=== PATIENT | female | born 1945 | race Hispanic/Latino ===

== ENCOUNTER 2024-06-24 11:21 | Emergency (ER) | payer MEDICARE ==
[~2024-06-24] VITALS: Ht 157.5 cm; Wt 73.0 kg
[~2024-06-24 11:21] MED LIST: ATROVENT HFA12.9 GM NEB; CALCITRIOL0.5 MCG PO; JEVITY 1.2 CAL237 ML PO; LEVOTHYROXINE50 MCG PO; LOSARTAN POTASS25 MG PEG; METOPROLOL SUCC25 MG PEG; MIRTAZAPINE15 MG PO; OLANZAPINE5 MG PO; REXULTI2 MG; VENLAFAXINE HCL75 MG PO; ZOLPIDEM TARTRAT5 MG PO
[2024-06-24 11:30] VITALS: PULSE 79; RESP 16; TEMP 97.5
[2024-06-24 14:54] VITALS: BP 131/65; PULSE 75; RESP 18; TEMP 98.3; O2SAT 98
== END 2024-06-24 14:56 | disposition home or self-care (01) ==
LOC: ER 11:55
DX: Z43.1 Encounter for attention to gastrostomy (principal); I10 Essential (primary) hypertension; E03.9 Hypothyroidism, unspecified; F41.9 Anxiety disorder, unspecified; F32.A Depression, unspecified; G47.00 Insomnia, unspecified; Z85.3 Personal history of malignant neoplasm of breast; Z85.850 Personal history of malignant neoplasm of thyroid
CPT/HCPCS: 99284